=== PATIENT | female | born 1995 | race Caucasian/White ===

== ENCOUNTER 2017-01-26 16:18 | Emergency (ER) | payer OTHER ==
[~2017-01-26] VITALS: Ht 165.1 cm; Wt 59.7 kg
[~2017-01-26 16:18] MED LIST: ABILIFY2 MG PO; BACTRIM,SEPT1 TABLET PO; BUSPIRONE HCL5 MG PO; CEPHALEXIN500 MG PO; ENDOCET 5-3251 EACH PO; ESCITALOPRAM OX10 MG PO; GEODON20 MG PO; GEODON40 MG PO; IBUPROFEN800 MG PO; NOHOMEMEDS; PRENATAL TABLE1 EACH PO; SAPHRIS10 MG SL; SAPHRIS5 MG SL
[2017-01-26 17:04] LABS: HEMATOCRIT 44.5 % (36.0-46.0); MCH 30.1 PG (29.0-34.0); MCHC 33.9 G/DL (30.0-36.0); MCV 88.8 FL (83-99); MEAN PLAT.VOLUME 10.3 uM^3 (9.5-12.4); PLATELET COUNT 362 K/uL (156-360); RBC DIS.WIDTH-CV 12.1 % (11.8-14.6); RBC DIS.WIDTH-SD 39.3 % (39-53); RED BLOOD COUNT 5.01 M/uL (3.80-5.20); WHITE BLOOD COUNT 9.1 K/uL (4.1-10.2)
[2017-01-26 17:47] LABS: CHLORIDE 104 mEq/L (99-109); POTASSIUM 3.8 mEq/L (3.7-5.4); SODIUM 139 mEq/L (136-147)
[2017-01-26 17:50] LABS: GLUCOSE 73 mg/dL (70-99)
[2017-01-26 17:51] LABS: ANION GAP 10 MEQ/L (2-14)
[2017-01-26 17:53] LABS: ALKALINE PHOSPHATASE 93 IU/L (3-129); GFR ESTIMATE (CALCULATED) > 59 mL/min/
[2017-01-26 17:54] LABS: UREA NITROGEN (BUN) 9 mg/dL (9-23)
[2017-01-26 18:03] LABS: QUANTITATIVE HCG < 4.0 MIU/ML
[2017-01-26 18:37] LABS: ADD MIUA? YES; BILIRUBIN NEGATIVE; BLOOD NEGATIVE; COLOR AMBER ((YELLOW)); GLUCOSE (STRIP) NEGATIVE; KETONES NEGATIVE; LEUKOCYTES SMALL; NITRITE NEGATIVE; PROTEIN (STRIP) 30
[2017-01-26 18:48] LABS: LIPASE 38 U/L (1.0-51.0)
[2017-01-26] MEDS ORDERED: MOTRIN800 MG PO (19:51)
[2017-01-26] MEDS ORDERED: ZOFRAN ODT4 MG PO (19:51)
[2017-01-26] MEDS ORDERED: PERCOCET 5/31 TABLET PO (19:51)
[2017-01-26 20:38] VITALS: BP 99/56
[2017-01-26 21:27] LABS: RED BLOOD CELLS 0-5 /HPF (0-5)
[2017-01-26 21:28] LABS: EPITHELIAL CELLS 4+ /HPF; MUCUS 2+ /LPF
[2017-01-26 21:29] LABS: BACTERIA 3+ /HPF; UCUL ADDED? YES
[2017-02-01] MEDS ORDERED: LATUDA20 MG PO (14:28)
== END 2017-01-26 20:40 | disposition home or self-care (01) ==
LOC: EME 16:18
DX: K80.70 Calculus of gallbladder and bile duct without cholecystitis without obstruction (principal); K59.00 Constipation, unspecified; R05 Cough; F31.9 Bipolar disorder, unspecified; F17.200 Nicotine dependence, unspecified, uncomplicated
CPT/HCPCS: 76705; 80053; 81003; 83690; 84702; 85027; 87086; 99281; 99284; J1885; J2405; J7030

== ENCOUNTER 2017-02-02 13:49 | Inpatient (IN) | payer OTHER ==
[~2017-02-02] VITALS: Ht 165.1 cm; Wt 56.7 kg
[~2017-02-02 13:49] MED LIST changes: +LATUDA20 MG PO; +MOTRIN800 MG PO; +PERCOCET 5/31 TABLET PO; +ZOFRAN ODT4 MG PO
[2017-02-02 20:06] VITALS: BP 108/63
[2017-02-03] VITALS (8 sets, daily range): BP systolic 90–119; BP diastolic 55–72
[2017-02-03 07:11] LABS: HEMATOCRIT 42.4 % (36.0-46.0); MCH 30.6 PG (29.0-34.0); MCHC 34.2 G/DL (30.0-36.0); MCV 89.5 FL (83-99); MEAN PLAT.VOLUME 10.7 uM^3 (9.5-12.4); PLATELET COUNT 305 K/uL (156-360); RBC DIS.WIDTH-CV 11.9 % (11.8-14.6); RBC DIS.WIDTH-SD 38.4 % (39-53); RED BLOOD COUNT 4.74 M/uL (3.80-5.20); WHITE BLOOD COUNT 7.9 K/uL (4.1-10.2)
[2017-02-03 07:34] LABS: ALKALINE PHOSPHATASE 75 IU/L (3-129); ANION GAP 8 MEQ/L (2-14); CHLORIDE 104 MEQ/L (99-109); DIRECT BILIRUBIN 0.3 mg/dL (0.0-0.3); GFR ESTIMATE (CALCULATED) > 59 mL/min/; GLUCOSE 92 mg/dL (70-99); LIPASE 196 U/L (1.0-51.0); POTASSIUM 3.8 MEQ/L (3.7-5.4); SAMPLE HEMOLYSIS CHECK 0; SAMPLE ICTERIC CHECK 0; SAMPLE LIPEMIA CHECK 0; SODIUM 137 MEQ/L (136-147); TOTAL BILIRUBIN 1.2 MG/DL (0.0-1.0); UREA NITROGEN (BUN) 8 mg/dL (9-23)
[2017-02-04 04:18] VITALS: BP 93/51
[2017-02-04 07:30] VITALS: BP 101/62
[2017-02-04 11:17] VITALS: BP 111/71
[2017-02-04] MEDS ORDERED: PERCOCET 5/31 TABLET PO (11:18)
== END 2017-02-04 12:05 | disposition home or self-care (01) | DRG 419 ==
LOC: AMB 13:49 → 2EAST 18:01 → 2SOUTH 18:01 → 2EAST 19:34
PROVIDERS: Specialist
DX: K80.70 Calculus of gallbladder and bile duct without cholecystitis without obstruction (principal); F31.9 Bipolar disorder, unspecified; K29.60 Other gastritis without bleeding; F17.210 Nicotine dependence, cigarettes, uncomplicated
CPT/HCPCS: 36415; 74328; 80048; 80053; 80076; 83690; 85025; 85027; 85610; 87081; 88304; C1757; C1769; C9113; G0378; J0131; J0330; J0690; J1100; J1170; J1720; J2405; J2710; J2765; J3010; J3480

== ENCOUNTER 2017-05-08 18:36 | Inpatient (IN) | payer OTHER ==
[~2017-05-08] VITALS: Ht 167.6 cm; Wt 56.4 kg
[2017-05-08 20:02] LABS: HEMATOCRIT 44.4 % (36.0-46.0); MCH 30.2 PG (29.0-34.0); MCHC 33.8 G/DL (30.0-36.0); MCV 89.3 FL (83-99); PLATELET COUNT 294 K/uL (156-360); RBC DIS.WIDTH-SD 39.1 % (39-53); RED BLOOD COUNT 4.97 M/uL (3.80-5.20); WHITE BLOOD COUNT 7.8 K/uL (4.1-10.2)
[2017-05-08 20:12] LABS: CHLORIDE 105 mEq/L (99-109); POTASSIUM 3.4 mEq/L (3.7-5.4); SODIUM 138 mEq/L (136-147)
[2017-05-08 20:14] LABS: GLUCOSE 83 mg/dL (70-99)
[2017-05-08 20:15] LABS: ANION GAP 10 MEQ/L (2-14)
[2017-05-08 20:17] LABS: SERUM ETHYL ALCOHOL < 10 mg/dL
[2017-05-08 20:18] LABS: GFR ESTIMATE (CALCULATED) > 59 mL/min/
[2017-05-08 20:19] LABS: UREA NITROGEN (BUN) 12 mg/dL (9-23)
[2017-05-08 20:26] LABS: AMPHETAMINE NEGATIVE (500 ng/mL); BARBITURATES NEGATIVE (200 ng/mL); BENZODIAZEPINES NEGATIVE (150 ng/mL); COCAINE NEGATIVE (150 ng/mL); INTERNAL CONTROLS VALID? YES; METHADONE NEGATIVE (200 ng/mL); METHAMPHETAMINE NEGATIVE (500 ng/mL); OPIATES (MORPHINE) NEGATIVE (100 ng/mL); OXYCODONE NEGATIVE (100 ng/mL); PHENCYCLIDINE NEGATIVE (25 ng/mL); PROPOXYPHENE NEGATIVE (300 ng/mL); THC CANNABINOIDS NEGATIVE (50 ng/mL); TRICYCLIC ANTIDEPRESSANTS NEGATIVE (300 ng/mL)
[2017-05-08 20:26] LABS: QUANTITATIVE HCG < 4.0 MIU/ML
[2017-05-09 14:13] VITALS: BP 114/84
[2017-05-09 14:18] VITALS: BP 114/84
[2017-05-09] MEDS ORDERED: ATARAX10 MG PO (15:18)
[2017-05-09] MEDS ORDERED: LATUDA40 MG PO (15:18)
[2017-05-09 16:27] VITALS: BP 125/80
[2017-05-10 07:53] VITALS: BP 121/88
[2017-05-10 15:31] VITALS: BP 108/65
[2017-05-11 07:13] VITALS: BP 124/83
[2017-05-11 15:21] VITALS: BP 138/85
[2017-05-12 07:22] VITALS: BP 146/88
[2017-05-12 15:23] VITALS: BP 112/70
[2017-05-13 07:31] VITALS: BP 98/72
[2017-05-13] MEDS ORDERED: OLANZAPINE10 MG PO (09:59)
== END 2017-05-13 11:27 | disposition home or self-care (01) | DRG 885 ==
LOC: EME 18:36 → EDOF 23:04 → 1WEST 05-09 14:07 → ENRESERV 05-09 14:07 → 1WEST 05-13 11:27
PROVIDERS: Physician Assistant
DX: F31.9 Bipolar disorder, unspecified (principal); F60.89 Other specific personality disorders; R45.851 Suicidal ideations; F43.10 Post-traumatic stress disorder, unspecified; F19.11 Other psychoactive substance abuse, in remission; F17.200 Nicotine dependence, unspecified, uncomplicated; Z62.810 Personal history of physical and sexual abuse in childhood; Z81.8 Family history of other mental and behavioral disorders
CPT/HCPCS: 80048; 84702; 85027; 90839; 97150 GO; 97165 GO; 99281; 99284; G0480; Q0169; Q0177

== ENCOUNTER 2017-05-17 19:49 | Emergency (ER) | payer OTHER ==
[~2017-05-17] VITALS: Ht 167.6 cm; Wt 57.0 kg
[~2017-05-17 19:49] MED LIST changes: +ATARAX10 MG PO; +LATUDA40 MG PO; +OLANZAPINE10 MG PO
[2017-05-17 20:29] LABS: HEMATOCRIT 41.2 % (36.0-46.0); MCH 30.8 PG (29.0-34.0); MCHC 33.7 G/DL (30.0-36.0); MCV 91.2 FL (83-99); MEAN PLAT.VOLUME 10.6 uM^3 (9.5-12.4); PLATELET COUNT 278 K/uL (156-360); RBC DIS.WIDTH-CV 12.3 % (11.8-14.6); RBC DIS.WIDTH-SD 41.1 % (39-53); RED BLOOD COUNT 4.52 M/uL (3.80-5.20); WHITE BLOOD COUNT 9.8 K/uL (4.1-10.2)
[2017-05-17 20:41] LABS: CHLORIDE 111 mEq/L (99-109); POTASSIUM 3.8 mEq/L (3.7-5.4); SODIUM 141 mEq/L (136-147)
[2017-05-17 20:42] LABS: GLUCOSE 73 mg/dL (70-99)
[2017-05-17 20:44] LABS: ANION GAP 7 MEQ/L (2-14)
[2017-05-17 20:46] LABS: GFR ESTIMATE (CALCULATED) > 59 mL/min/
[2017-05-17 20:47] LABS: UREA NITROGEN (BUN) 7 mg/dL (9-23)
[2017-05-18 00:15] VITALS: BP 142/80
== END 2017-05-18 00:21 | disposition home or self-care (01) ==
LOC: RME 19:49 → EME 19:49 → RME 05-18 00:21
DX: J06.9 Acute upper respiratory infection, unspecified (principal); F41.9 Anxiety disorder, unspecified; F17.200 Nicotine dependence, unspecified, uncomplicated; Z88.8 Allergy status to other drugs, medicaments and biological substances
CPT/HCPCS: 71020; 80048; 85027; 99281; 99284

== ENCOUNTER 2017-06-12 15:12 | Inpatient (IN) | payer OTHER ==
[~2017-06-12] VITALS: Ht 167.6 cm; Wt 58.0 kg
[2017-06-12 15:59] LABS: HEMATOCRIT 40.7 % (36.0-46.0); MCH 30.4 PG (29.0-34.0); MCHC 33.7 G/DL (30.0-36.0); MCV 90.2 FL (83-99); MEAN PLAT.VOLUME 10.2 uM^3 (9.5-12.4); PLATELET COUNT 316 K/uL (156-360); RBC DIS.WIDTH-CV 12.3 % (11.8-14.6); RBC DIS.WIDTH-SD 40.4 % (39-53); RED BLOOD COUNT 4.51 M/uL (3.80-5.20); WHITE BLOOD COUNT 9.7 K/uL (4.1-10.2)
[2017-06-12 16:07] LABS: CHLORIDE 109 mEq/L (99-109); POTASSIUM 3.2 mEq/L (3.7-5.4); SODIUM 142 mEq/L (136-147)
[2017-06-12 16:09] LABS: GLUCOSE 129 mg/dL (70-99)
[2017-06-12 16:10] LABS: ANION GAP 11 MEQ/L (2-14)
[2017-06-12 16:12] LABS: SERUM ETHYL ALCOHOL < 10 mg/dL
[2017-06-12 16:13] LABS: GFR ESTIMATE (CALCULATED) > 59 mL/min/
[2017-06-12 16:14] LABS: UREA NITROGEN (BUN) 9 mg/dL (9-23)
[2017-06-12 16:50] LABS: AMPHETAMINE NEGATIVE (500 ng/mL); BARBITURATES NEGATIVE (200 ng/mL); BENZODIAZEPINES NEGATIVE (150 ng/mL); COCAINE NEGATIVE (150 ng/mL); INTERNAL CONTROLS VALID? YES; METHADONE NEGATIVE (200 ng/mL); METHAMPHETAMINE NEGATIVE (500 ng/mL); OPIATES (MORPHINE) NEGATIVE (100 ng/mL); OXYCODONE NEGATIVE (100 ng/mL); PHENCYCLIDINE NEGATIVE (25 ng/mL); PROPOXYPHENE NEGATIVE (300 ng/mL); THC CANNABINOIDS NEGATIVE (50 ng/mL); TRICYCLIC ANTIDEPRESSANTS NEGATIVE (300 ng/mL)
[2017-06-12 18:53] LABS: QUANTITATIVE HCG < 4.0 MIU/ML
[2017-06-12 23:55] VITALS: BP 128/77
[2017-06-13 07:36] VITALS: BP 122/76
[2017-06-13 15:33] VITALS: BP 110/72
[2017-06-14 07:38] VITALS: BP 119/72
[2017-06-14 15:21] VITALS: BP 100/55
[2017-06-14 17:56] VITALS: BP 114/76
[2017-06-15 03:07] LABS: POINT-OF-CARE METER ID UU14188576; POINT-OF-CARE USER ID BHSSMG
[2017-06-15 03:17] LABS: HEMATOCRIT 39.2 % (36.0-46.0); MCH 30.2 PG (29.0-34.0); MCHC 33.2 G/DL (30.0-36.0); MCV 91.2 FL (83-99); MEAN PLAT.VOLUME 10.4 uM^3 (9.5-12.4); PLATELET COUNT 297 K/uL (156-360); RBC DIS.WIDTH-CV 12.4 % (11.8-14.6); RBC DIS.WIDTH-SD 40.5 % (39-53); WHITE BLOOD COUNT 8.7 K/uL (4.1-10.2)
[2017-06-15 03:25] LABS: CHLORIDE 108 mEq/L (99-109); SODIUM 143 mEq/L (136-147)
[2017-06-15 03:26] LABS: POTASSIUM 3.9 mEq/L (3.7-5.4)
[2017-06-15 03:27] LABS: GLUCOSE 97 mg/dL (70-99)
[2017-06-15 03:29] LABS: ANION GAP 10 MEQ/L (2-14)
[2017-06-15 03:31] LABS: GFR ESTIMATE (CALCULATED) > 59 mL/min/
[2017-06-15 03:32] LABS: UREA NITROGEN (BUN) 14 mg/dL (9-23)
[2017-06-15 03:38] LABS: TROP-I INTERPRETATION NEGATIVE; TROPONIN-I < 0.01 ng/mL (0.0-0.30)
[2017-06-15 05:30] VITALS: BP 107/58
[2017-06-15 07:20] VITALS: BP 106/60
[2017-06-15 15:31] VITALS: BP 120/58
[2017-06-16 07:57] VITALS: BP 98/54
[2017-06-16] MEDS ORDERED: OLANZAPINE10 MG PO (09:48)
[2017-06-16] MEDS ORDERED: PRAZOSIN HCL1 MG PO (09:48)
[2017-06-16] MEDS ORDERED: CITALOPRAM HBR10 MG PO (09:48)
[2017-06-16] MEDS ORDERED: BUSPAR10 MG PO (09:48)
== END 2017-06-16 12:03 | disposition home or self-care (01) | DRG 885 ==
LOC: EME 15:12 → 1WEST 20:07 → EDOF 20:07 → ENRESERV 22:59 → 1WEST 23:45
PROVIDERS: Hospitalist; Psychiatry & Neurology Psychiatry
DX: F31.9 Bipolar disorder, unspecified (principal); F60.89 Other specific personality disorders; R45.851 Suicidal ideations; Z81.8 Family history of other mental and behavioral disorders; F43.10 Post-traumatic stress disorder, unspecified; F17.200 Nicotine dependence, unspecified, uncomplicated; F19.21 Other psychoactive substance dependence, in remission
CPT/HCPCS: 80048; 82948; 83735; 84484; 84702; 85027; 90839; 93005; 97150 GO; 97165 GO; 99281; 99285; G0480

== ENCOUNTER 2017-06-23 14:54 | Emergency (ER) | payer OTHER ==
[~2017-06-23] VITALS: Ht 165.1 cm; Wt 61.0 kg
[~2017-06-23 14:54] MED LIST changes: +BUSPAR10 MG PO; +CITALOPRAM HBR10 MG PO; +PRAZOSIN HCL1 MG PO
[2017-06-23 15:30] LABS: MCH 30.5 PG (29.0-34.0); MCHC 33.5 G/DL (30.0-36.0); MCV 91.1 FL (83-99); MEAN PLAT.VOLUME 10.3 uM^3 (9.5-12.4); PLATELET COUNT 242 K/uL (156-360); RBC DIS.WIDTH-CV 12.5 % (11.8-14.6); RBC DIS.WIDTH-SD 41.2 % (39-53); RED BLOOD COUNT 4.39 M/uL (3.80-5.20); WHITE BLOOD COUNT 7.5 K/uL (4.1-10.2)
[2017-06-23 15:41] LABS: CHLORIDE 105 mEq/L (99-109); POTASSIUM 3.6 mEq/L (3.7-5.4); SODIUM 141 mEq/L (136-147)
[2017-06-23 15:43] LABS: GLUCOSE 90 mg/dL (70-99)
[2017-06-23 15:44] LABS: ANION GAP 13 MEQ/L (2-14)
[2017-06-23 15:46] LABS: GFR ESTIMATE (CALCULATED) > 59 mL/min/
[2017-06-23 15:47] LABS: UREA NITROGEN (BUN) 13 mg/dL (9-23)
[2017-06-23 15:53] LABS: TROP-I INTERPRETATION NEGATIVE; TROPONIN-I < 0.01 ng/mL (0.0-0.30)
[2017-06-23 15:55] LABS: QUANTITATIVE HCG < 4.0 MIU/ML
[2017-06-23 16:32] LABS: ADD MIUA? NO; BILIRUBIN NEGATIVE; BLOOD NEGATIVE; COLOR YELLOW ((YELLOW)); GLUCOSE (STRIP) NEGATIVE; KETONES NEGATIVE; LEUKOCYTES NEGATIVE; NITRITE NEGATIVE; PROTEIN (STRIP) NEGATIVE; SPECIFIC GRAVITY 1.017 (1.000-1.030); UROBILINOGEN 0.2 MG/DL (0.2-1.0)
[2017-06-23 16:41] LABS: AMPHETAMINE NEGATIVE (500 ng/mL); BARBITURATES NEGATIVE (200 ng/mL); BENZODIAZEPINES NEGATIVE (150 ng/mL); COCAINE NEGATIVE (150 ng/mL); INTERNAL CONTROLS VALID? YES; METHADONE NEGATIVE (200 ng/mL); METHAMPHETAMINE NEGATIVE (500 ng/mL); OPIATES (MORPHINE) NEGATIVE (100 ng/mL); OXYCODONE NEGATIVE (100 ng/mL); PHENCYCLIDINE NEGATIVE (25 ng/mL); PROPOXYPHENE NEGATIVE (300 ng/mL); THC CANNABINOIDS NEGATIVE (50 ng/mL); TRICYCLIC ANTIDEPRESSANTS NEGATIVE (300 ng/mL)
[2017-06-23 17:18] VITALS: BP 98/76
== END 2017-06-23 17:18 | disposition home or self-care (01) ==
LOC: EME 14:54
PROVIDERS: Nurse Practitioner Family
DX: R42 Dizziness and giddiness (principal); R03.1 Nonspecific low blood-pressure reading; T44.6X5A Adverse effect of alpha-adrenoreceptor antagonists, initial encounter; F17.200 Nicotine dependence, unspecified, uncomplicated
CPT/HCPCS: 80048; 81003; 84484; 84702; 85027; 93005; 99281; 99284; J7030